=== PATIENT | female | born 1965 | race Caucasian/White ===

== ENCOUNTER 2024-01-31 19:41 | Emergency (ER) | payer OTHER ==
--- NOTE | 2024-01-31 19:55 | ERPHSYRPT ---
- History of Present Illness Time Seen by Provider: 01/31/24 19:54 Source: patient Exam Limitations: no limitations Physician History: This is a 58-year-old white female patient who presents to the emergency department with right hand and forearm numbness and achiness that was relatively sudden onset at approximately 1800 prior to arrival. Patient was brought to the emergency department by the ambulance service. Patient denies any head trauma. She denies headache. She denies visual changes. Patient does have a history of CHF but no history of coronary disease or cardiac stent placement. Patient does have a history of a CVA in the past that is on the right side with left-sided symptoms for period of time. Today, her symptoms are very mild and in the right upper extremity as described above. Patient has a history of a seizure disorder and a psychiatric history of borderline personality disorder and depression. Patient also has a history of hypothyroidism, hypertension, gastroesophageal reflux disease and hyperlipidemia. She has no chest pain. She denies shortness of breath. She denies abdominal pain. She has had no nausea vomiting or diarrhea symptoms. She has noticed no visual changes. Patient is a daily smoker of cigarettes. NIH score on arrival is 0 Timing/Duration: today Severity: mild Associated Symptoms: denies symptoms Allergies/Adverse Reactions: clonidine Allergy (Verified 01/31/24 19:42) MAKES JAW SHUT Influenza Virus Vaccines [Influenza Virus Vaccine] Allergy (Verified 01/31/24 19:42) Home Medications: Aspirin 81 gm Chew [Baby Aspirin 81 mg Chew] 81 mg PO DAILY 01/31/24 [Hist ory] Atomoxetine HCl 40 mg PO DAILY 01/31/24 [History] Atorvastatin Calcium 80 mg PO HS 01/31/24 [History] Buspirone HCl 5 mg [Buspar 5 mg] 10 mg PO TID 01/31/24 [History] Fenofibrate Nanocrystallized [Fenofibrate] 145 mg PO DAILY 01/31/24 [History] Gabapentin [Neurontin ] 300 mg PO HS 01/31/24 [History] Metoprolol Succinate 25 mg Xl* [Toprol-Xl 25MG Tablets] 25 mg PO DAILY 01/31/24 [History] Multivit/Iron Sulf/Folic Acid [Tab-A-Rohith Multivit with Iron] 1 tab PO DAILY 01/31/24 [History] Omeprazole 40 mg PO DAILY 01/31/24 [History] Quetiapine Fumarate [Quetiapine Fumarate ER] 300 mg PO HS 01/31/24 [History] Rivaroxaban [Xarelto] 20 mg PO HS 01/31/24 [History] Sacubitril/Valsartan [Entresto 49 mg-51 mg Tablet] 1 tab PO BID 01/31/24 [History] Sennosides/Docusate Sodium [Stool Softener-Laxative Tablet] 2 tab PO BID 01/31/24 [History] Hx Tetanus, Diphtheria Vaccination/Date Given: Yes (2004) Hx Influenza Vaccination/Date Given: No Hx Pneumococcal Vaccination/Date Given: No Travel Risk - International Travel Have you traveled outside of the country in past 3 weeks: No - Emerging Infectious Disease Are you exhibiting symptoms associated with any current EIDs: No - Vaccine Status Hx Covid Vaccintation/Booster/Date Given: No - Review of Systems Constitutional: No Symptoms Eyes: No Symptoms Ears, Nose, & Throat: No Symptoms Respiratory: No Symptoms Cardiac: No Symptoms Abdominal/Gastrointestinal: No Symptoms Genitourinary Symptoms: No Symptoms Musculoskeletal: Other (Right hand wrist and forearm numbness and mild achiness) Skin: No Symptoms Neurological: No Symptoms, No Dizziness, No Headache, No Speech Changes Psychological: No Symptoms Endocrine: No Symptoms Hematologic/Lymphatic: No Symptoms Immunological/Allergic: No Symptoms All Other Systems: Reviewed and Negative - Past Medical History Pertinent Past Medical History: Yes Neurological History: Seizures ENT History: No Pertinent History Cardiac History: No Pertinent History Respiratory History: No Pertinent History Endocrine Medical History: Hypothyroidism Musculoskeletal History: No Pertinent History GI Medical History: No Pertinent History History: No Pertinent History Psycho-Social History: Depression, Other Female Reproductive Disorders: Fibroids Other Medical History: borderline personality disorder - Past Surgical History Past Surgical History: Yes Neuro Surgical History: No Pertinent History Cardiac: No Pertinent History Gastrointestinal: Appendectomy Genitourinary: No Pertinent History Musculoskeletal: No Pertinent History Female Surgical History: Section, Hysterectomy Other Surgical History: T/A--age 15...diag lap Significant Family History: no pertinent family hx - Social History Smoking Status: Current every day smoker Exposure to second hand smoke: Yes Alcohol Use: None (today or yesterday) Drug Use: none, marijuana (yesterday) Patient Lives Alone: No - Nursing Vital Signs Nursing Vital Signs: Initial Vital Signs Temperature 97 F 01/31/24 19:41 Pulse Rate 91 H 01/31/24 19:41 Respiratory Rate 12 01/31/24 19:41 Blood Pressure 139/80 01/31/24 19:41 O2 Sat by Pulse Oximetry 96 01/31/24 19:41 Pain Scale Pain Intensity 0 - Physical Exam General Appearance: no apparent distress, alert Eye Exam: PERRL/EOMI Ears, Nose, Throat Exam: normal ENT inspection, moist mucous membranes Neck Exam: normal inspection, non-tender, supple, full range of motion Respiratory Exam: normal breath sounds, lungs clear, airway intact, pleural rub, No chest tenderness, No respiratory distress Cardiovascular Exam: regular rate/rhythm, normal heart sounds, normal peripheral pulses Gastrointestinal/Abdomen Exam: soft, normal bowel sounds, No tenderness Pelvic Exam: not done Rectal Exam: not done Back Exam: normal inspection, normal range of motion, No CVA tenderness, No vertebral tenderness Extremity Exam: normal inspection, normal range of motion, pelvis stable Neurologic Exam: alert, oriented x 3, cooperative, chamber magistrate II-XII nml as tested, normal mood/affect, nml cerebellar function, nml station & gait, sensation nml Skin Exam: normal color, warm, dry Lymphatic Exam: No adenopathy SpO2 Interpretation: normal O2 Delivery: Room Air - Course Nursing assessment & vital signs reviewed: Yes Ordered Tests: Active Orders 24 hr Category Date Time Status EKG-ER Only STAT Care 01/31/24 20:31 Active NPO (ED) STAT Care 01/31/24 20:31 Active Pulse Oximetry (ED) STAT Care 01/31/24 20:31 Active HEAD WITHOUT CONTRAST [CT] Stat Exams 01/31/24 19:51 Taken CBC W DIFF Stat Lab 01/31/24 20:46 Completed CMP Stat Lab 01/31/24 20:46 Completed TROPONIN Q4H Lab 01/31/24 21:00 Completed TROPONIN Q4H Lab 02/01/24 01:15 Ordered TROPONIN Q4H Lab 02/01/24 05:15 Ordered TSH [TSH, 3RD Generation] Stat Lab 01/31/24 21:00 Completed UA W/RFX UR CULTURE Stat Lab 01/31/24 20:31 Completed Lab/Rad Data: Laboratory Result Diagrams 01/31/24 20:46 01/31/24 20:46 Laboratory Results 01/31/24 01/31/24 01/31/24 Range/Units 21:00 21:00 21:00 WBC (4.0-10.5) x10^3/uL RBC (4.1-5.4) x10^6/uL Hgb (12.0-16.0) g/dL Hct (35-47) % MCV (78-100) fL MCH (26-32) pg MCHC (32-36) g/dL RDW (11.5-14.0) % Plt Count (150-450) x10^3/uL MPV (7.5-11.0) fL Gran % (36.0-66.0) % Immature Gran % (Auto) (0.00-0.4) % Nucleat RBC Rel Count (0.00-0.1) % Eos # (Auto) (0-0.5) x10^3/uL Immature Gran # (Auto) (0.00-0.03) x10^3u/L Absolute Lymphs (auto) (1.0-4.6) x10^3/uL Absolute Monos (auto) (0.0-1.3) x10^3/uL Absolute Nucleated RBC (0.00-0.01) x10^3u/L Lymphocytes % (24.0-44.0) % Monocytes % (0.0-12.0) % Eosinophils % (0.00-5.0) % Basophils % (0.0-0.4) % Absolute Granulocytes (1.4-6.9) x10^3/uL Basophils # (0-0.4) x10^3/uL Sodium (135-145) mmol/L Potassium (3.5-5.1) mmol/L Chloride (98-107) mmol/L Carbon Dioxide (22-30) mmol/L Anion Gap (5-15) MEQ/L BUN (7-17) mg/dL Creatinine (0.52-1.04) mg/dL Estimated GFR ML/MIN Glucose (74-106) mg/dL Calcium (8.4-10.2) mg/dL Total Bilirubin (0.2-1.3) mg/dL AST (14-36) U/L ALT (0-35) U/L Alkaline Phosphatase (38-126) U/L Troponin I < 0.012 (0.000-0.034) ng/mL Serum Total Protein (6.3-8.2) g/dL Albumin (3.5-5.0) g/dL Free T4 0.77 L (0.78-2.19) ng/dL TSH 3rd Generation 1.650 (0.47-4.68) mIU/L Urine Color (Yellow) Urine Appearance (Clear) Urine pH (4.6-8.0) Ur Specific [place] (1.005-1.030) Urine Protein (Negative) Urine Glucose (UA) (Negative) mg/dL Urine Ketones (Negative) Urine Blood (Negative) Urine Nitrite (Negative) Urine Bilirubin (Negative) Urine Urobilinogen (0.2) mg/dL Ur Leukocyte Esterase (Negative) U Hyaline Cast (Auto) (0-2) /LPF Urine Microscopic RBC (0-5) /HPF Urine Microscopic WBC (0-5) /HPF Ur Epithelial Cells (None Seen) /HPF Urine Bacteria (None Seen) /HPF Urine Culture Reflexed (NO) 01/31/24 01/31/24 01/31/24 Range/Units 20:46 20:46 20:31 WBC 8.0 (4.0-10.5) x10^3/uL RBC 4.58 (4.1-5.4) x10^6/uL Hgb 13.2 (12.0-16.0) g/dL Hct 42.0 (35-47) % MCV 91.7 (78-100) fL MCH 28.8 (26-32) pg MCHC 31.4 L (32-36) g/dL RDW 12.8 (11.5-14.0) % Plt Count 409 (150-450) x10^3/uL MPV 9.7 (7.5-11.0) fL Gran % 53.2 (36.0-66.0) % Immature Gran % (Auto) 1.0 H (0.00-0.4) % Nucleat RBC Rel Count 0.0 (0.00-0.1) % Eos # (Auto) 0.24 (0-0.5) x10^3/uL Immature Gran # (Auto) 0.08 H (0.00-0.03) x10^3u/L Absolute Lymphs (auto) 2.78 (1.0-4.6) x10^3/uL Absolute Monos (auto) 0.58 (0.0-1.3) x10^3/uL Absolute Nucleated RBC 0.00 (0.00-0.01) x10^3u/L Lymphocytes % 34.6 (24.0-44.0) % Monocytes % 7.2 (0.0-12.0) % Eosinophils % 3.0 (0.00-5.0) % Basophils % 1.0 (0.0-0.4) % Absolute Granulocytes 4.28 (1.4-6.9) x10^3/uL Basophils # 0.08 (0-0.4) x10^3/uL Sodium 142 (135-145) mmol/L Potassium 4.4 (3.5-5.1) mmol/L Chloride 108 H (98-107) mmol/L Carbon Dioxide 26 (22-30) mmol/L Anion Gap 12.5 (5-15) MEQ/L BUN 27 H (7-17) mg/dL Creatinine 0.96 (0.52-1.04) mg/dL Estimated GFR 69.4 ML/MIN Glucose 80 (74-106) mg/dL Calcium 9.2 (8.4-10.2) mg/dL Total Bilirubin 0.20 (0.2-1.3) mg/dL AST 29 (14-36) U/L ALT 19 (0-35) U/L Alkaline Phosphatase 44 (38-126) U/L Troponin I (0.000-0.034) ng/mL Serum Total Protein 7.8 (6.3-8.2) g/dL Albumin 4.3 (3.5-5.0) g/dL Free T4 (0.78-2.19) ng/dL TSH 3rd Generation (0.47-4.68) mIU/L Urine Color Yellow (Yellow) Urine Appearance Clear (Clear) Urine pH 6.0 (4.6-8.0) Ur Specific [place] 1.020 (1.005-1.030) Urine Protein Negative (Negative) Urine Glucose (UA) Negative (Negative) mg/dL Urine Ketones Negative (Negative) Urine Blood Negative (Negative) Urine Nitrite Negative (Negative) Urine Bilirubin Negative (Negative) Urine Urobilinogen 1.0 A (0.2) mg/dL Ur Leukocyte Esterase Negative (Negative) U Hyaline Cast (Auto) NONE SEEN (0-2) /LPF Urine Microscopic RBC 0-2 (0-5) /HPF Urine Microscopic WBC 0-2 (0-5) /HPF Ur Epithelial Cells None Seen (None Seen) /HPF Urine Bacteria None Seen (None Seen) /HPF Urine Culture Reflexed NO (NO) - Progress Progress: improved, re-examined Progress Note: 01/31/24 21:13 This patient's medical issue is of moderate complexity. The level of complexity in the workup performed is based on review of the patient's past medical history, review of the patient's medication list, review of patient drug allergy list, history present illness and physical findings on examination. The workup in this patient includes placement of intravenous line, twelve-lead EKG, troponin level, CBC, CMP, urinalysis, CT scan of the head. The CT scan of the head was interpreted by the radiologist. The impression states a new finding of a small old right mid parietal lobe infarction when compared to the same type of study that was performed on 07/17/2011. There are no acute findings 01/31/24 22:33 I interpreted the patient's laboratory data results. There is no evidence of any acute, emergent findings based on the laboratory data results. Patient has no chest pain. Patient is neurologically intact. She has no shortness of breath she has no abdominal pain. She is stable for discharge to home. Counseled pt/family regarding: lab results, diagnosis, need for follow-up, rad results Medical Desision Making - Diagnostic Testing Diagnostic test were ordered, analyzed, and reviewed by me: Yes Radiological Interpretation: Reviewed by me, Teleradiologist Report - Risk of complications Low Risk: Low risk of morbidity from additional dx testing or treatment - Departure Departure Disposition: Home Clinical Impression: Numbness and tingling in right hand Condition: Stable Critical Care Time: No Referrals: DOCTOR,NO FAMILY [NON-STAFF PHY W/O PRIVILEGES] - Follow up/PCP as directed Additional Instructions: Take your medication as prescribed. Call your neurologist on 02/03/2024 to make arranges for follow-up appointment for further evaluation and management.
[2024-01-31 19:57] VITALS: TEMP 97
[2024-01-31 20:48] LABS: Absolute Neutrophil Ct (ANC) 4.28 x10^3/uL (1.4-6.9); Basophil (Absolute #) 0.08 x10^3/uL (0-0.4); Eosinophil (Absolute #) 0.24 x10^3/uL (0-0.5); Hemoglobin 13.2 g/dL (12.0-16.0); IMMATURE GRAN # 0.08 x10^3u/L (0.00-0.03); Lymphocyte (Absolute #) 2.78 x10^3/uL (1.0-4.6); Lymphocytes % 34.6 % (24.0-44.0); Mean Cell Volume 91.7 fL (78-100); Mean Corpuscular Hemoglobin 28.8 pg (26-32); Mean Corpuscular Hgb Concent. 31.4 g/dL (32-36); Mean Platelet Volume 9.7 fL (7.5-11.0); Monocyte (Absolute #) 0.58 x10^3/uL (0.0-1.3); Monocytes % 7.2 % (0.0-12.0); Neutrophil % 53.2 % (36.0-66.0); Platelet Count 409 x10^3/uL (150-450); Red Blood Count 4.58 x10^6/uL (4.1-5.4); Red Cell Distribution Width 12.8 % (11.5-14.0)
[2024-01-31 21:06] LABS: ALBUMIN 4.3 g/dL (3.5-5.0); ANION GAP 12.5 MEQ/L (5-15); BILIRUBIN,TOTAL 0.2 mg/dL (0.2-1.3); Calcium 9.2 mg/dL (8.4-10.2); Creatinine 1 0.96 mg/dL (0.52-1.04); EST GLOMERULAR FILTRATION RATE 69.4 ML/MIN; Potassium 4.4 mmol/L (3.5-5.1); Total Protein 7.8 g/dL (6.3-8.2)
[2024-01-31 21:13] VITALS: PULSE 75
[2024-01-31 22:04] LABS: Appearance Clear (Clear); Bacteria None Seen /HPF (None Seen); Bilirubin Negative (Negative); Blood Negative (Negative); Epithelial Cells None Seen /HPF (None Seen); Glucose, Urine Negative (Negative); Hyaline Casts NONE SEEN /LPF (0-2); Ketones Negative (Negative); Leukocyte Esterase Negative (Negative); Nitrite Negative (Negative); Protein,Urine Dip Negative (Negative); RBC 0-2 /HPF (0-5); WBC 0-2 /HPF (0-5)
[2024-01-31 22:05] LABS: ADD URINE CULTURE? NO (NO)
[2024-01-31 22:43] VITALS: BP 125/91; RESP 20; O2SAT 97
--- NOTE | 2024-02-01 08:25 | XRAY ---
Indication: Tingling. History clot. Multiple contiguous axial images obtained the head without contrast. Comparison: June 15, 2006 New finding small old infarct right mid parietal lobe. No acute intracranial hemorrhage, abnormal extra-axial fluid collection, or mass effect. Fourth ventricle is midline without hydrocephalus. Sheldon-white matter differentiation preserved. Bony calvarium intact. Visualized paranasal sinuses and mastoid air cells are clear. Impression: Small focus old right parietal infarct. No acute intracranial abnormalities.
== END 2024-01-31 22:55 | disposition home or self-care (01) ==
LOC: ED 19:41
DX: R20.2 Paresthesia of skin (principal); I11.0 Hypertensive heart disease with heart failure; I50.9 Heart failure, unspecified; E78.5 Hyperlipidemia, unspecified; Z79.01 Long term (current) use of anticoagulants; Z79.899 Other long term (current) drug therapy; Z28.310 Unvaccinated for COVID-19; Z72.0 Tobacco use
CPT/HCPCS: 36415; 70450; 80053; 81001; 84439; 84443; 84484; 85025; 93005; 94760; 99284

== ENCOUNTER 2024-11-27 21:20 | Observation (INO) | payer OTHER ==
--- NOTE | 2024-11-27 21:40 | ERPHSYRPT ---
- History of Present Illness Time Seen by Provider: 11/27/24 21:23 Historian: patient, EMS Exam Limitations: no limitations Physician History: 59-year-old female with history of hypertension, hyperlipidemia, congestive heart failure not on diuretics, stroke with left-sided residual weakness on Xarelto presented in the ER with left-sided chest pain sudden onset around 7 PM while she was watching TV. Patient took 2 nitros with no significant relief and EMS was called. Patient received another nitro along with full dose aspirin followed by Nitropaste and her pain is better on presentation in the ER. She denies any palpitations or difficulty breathing. No cough fever or chills reported. Denies any history of stenting. Nitro Today/Relief: 0.4 mg x 3, provided by EMS, provided at home Aspirin Treatment Today: 81 mg x 4, provided by EMS Allergies/Adverse Reactions: clonidine Allergy (Verified 01/31/24 19:42) MAKES JAW SHUT Influenza Virus Vaccines [Influenza Virus Vaccine] Allergy (Verified 01/31/24 19:42) Home Medications: Aspirin 81 gm Chew [Baby Aspirin 81 mg Chew] 81 mg PO DAILY 01/31/24 [History] Atorvastatin Calcium 80 mg PO HS 01/31/24 [History] Fenofibrate Nanocrystallized [Fenofibrate] 145 mg PO DAILY 01/31/24 [History] Gabapentin [Neurontin ] 300 mg PO HS 01/31/24 [History] Metoprolol Succinate 25 mg Xl* [Toprol-Xl 25MG Tablets] 25 mg PO DAILY 01/31/24 [History] Multivit/Iron Sulf/Folic Acid [Tab-A-Rohith Multivit with Iron] 1 tab PO DAILY 01/31/24 [History] Omeprazole 40 mg PO DAILY 01/31/24 [History] Quetiapine Fumarate [Quetiapine Fumarate ER] 300 mg PO HS 01/31/24 [History] Rivaroxaban [Xarelto] 20 mg PO HS 01/31/24 [History] Sennosides/Docusate Sodium [Stool Softener-Laxative Tablet] 2 tab PO BID 01/30 [History] Hx Tetanus, Diphtheria Vaccination/Date Given: Yes (2004) Hx Influenza Vaccination/Date Given: No Hx Pneumococcal Vaccination/Date Given: No Travel Risk - Emerging Infectious Disease Are you exhibiting symptoms associated with any current EIDs: No - Review of Systems Constitutional: No Symptoms Eyes: No Symptoms Ears, Nose, & Throat: No Symptoms Respiratory: No Symptoms Cardiac: Chest Pain Abdominal/Gastrointestinal: No Symptoms Genitourinary Symptoms: No Symptoms Musculoskeletal: Deformity Skin: No Symptoms Neurological: Focal Weakness Endocrine: No Symptoms - Past Medical History Pertinent Past Medical History: Yes Neurological History: Seizures ENT History: No Pertinent History Cardiac History: No Pertinent History Respiratory History: No Pertinent History Endocrine Medical History: Hypothyroidism Musculoskeletal History: No Pertinent History GI Medical History: No Pertinent History History: No Pertinent History Psycho-Social History: Depression, Other Female Reproductive Disorders: Fibroids Other Medical History: borderline personality disorder - Past Surgical History Past Surgical History: Yes Neuro Surgical History: No Pertinent History Cardiac: No Pertinent History Gastrointestinal: Appendectomy Genitourinary: No Pertinent History Musculoskeletal: No Pertinent History Female Surgical History: Section, Hysterectomy Other Surgical History: T/A--age 15...diag lap Significant Family History: no pertinent family hx - Social History Smoking Status: Current every day smoker Exposure to second hand smoke: Yes Alcohol Use: None (today or yesterday) Drug Use: none, marijuana (yesterday) Patient Lives Alone: No - Social Determinants of Health Will the patient participate in the screening: Yes Do you worry about a steady place to live?: No In the past 12 months,have you had to go without utilities?: No Transportation Issues: No Has anyone in your support network made you feel unsafe?: No Have you or anyone in your house had to go without enough: No - Nursing Vital Signs Nursing Vital Signs: Initial Vital Signs Temperature 98.6 F 11/27/24 21:20 Pulse Rate 74 11/27/24 21:20 Respiratory Rate 18 11/27/24 21:20 Blood Pressure 128/72 11/27/24 21:20 O2 Sat by Pulse Oximetry 97 11/27/24 21:20 Pain Scale Pain Intensity 0 - Physical Exam General Appearance: no apparent distress Eye Exam: PERRL/EOMI Ears, Nose, Throat Exam: normal ENT inspection Neck Exam: normal inspection, full range of motion Respiratory Exam: normal breath sounds, lungs clear Cardiovascular Exam: regular rate/rhythm, normal heart sounds Gastrointestinal/Abdomen Exam: soft, normal bowel sounds, No tenderness Extremity Exam: other (Left hand contracture) Neurologic Exam: alert, oriented x 3, cooperative Skin Exam: normal color SpO2 Interpretation: normal SpO2: 95 O2 Delivery: Room Air - Course EKG Interpreted by Me: RATE (68), Sinus Rhythm, NORMAL AXIS, NORMAL INTERVALS, Q-wave, Non-specific ST Changes Ordered Tests: Active Orders 24 hr Category Date Time Status Bedrest ROUTINE Activity 11/28/24 01:01 Active Up With Assistance TOLERATED Activity 11/28/24 01:01 Active Call Admit Doctor for Orders ON ADMISSION Care 11/28/24 01:01 Active Retirement Sales Consultant STAT Care 11/27/24 21:32 Completed Code Status Order ROUTINE Care 11/28/24 01:01 Active EKG-ER Only STAT Care 11/27/24 21:32 Completed Fall Protocol Q1H Care 11/28/24 01:01 Active IV Insertion STAT Care 11/27/24 21:[address] in Observation ROUTINE Care 11/28/24 01:01 Active Pulse Oximetry (ED) STAT Care 11/27/24 21:32 Completed Telemetry q6h Care 11/28/24 01:01 Active CHEST 1 VIEW (PORTABLE) Stat Exams 11/27/24 21:32 Taken CBC W DIFF Stat Lab 11/27/24 21:40 Completed CMP Stat Lab 11/27/24 21:40 Completed NT PRO BNPII Stat Lab 11/27/24 21:40 Completed TROPONIN Q4H Lab 11/27/24 21:40 Completed TROPONIN Q4H Lab 11/28/24 01:45 Ordered TROPONIN Q4H Lab 11/28/24 05:45 Ordered Transfer Order Routine Transfer 11/28/24 Completed Medication Summary Generic Name Dose Route Start Last Admin Trade Name Freq PRN Reason Stop Dose Admin Acetaminophen 325 mg 11/28/24 00:54 Acetaminophen 325 Mg Tablet PO 12/28/24 00:53 Q4H PRN PRN PAIN, FEVER, HEADACHE Aspirin 81 mg 11/28/24 10:00 Aspirin 81 Mg Tab.Chew PO 12/28/24 09:59 DAILY SUE Fenofibrate 145 mg 11/28/24 10:00 Fenofibrate,Micronized 145 Mg Tablet PO 12/28/24 09:59 DAILY SUE Gabapentin 300 mg 11/28/24 22:00 Gabapentin 300 Mg Capsule PO 12/28/24 21:59 HS SUE Sodium Chloride 1,000 mls @ 50 mls/hr 11/28/24 01:00 01/18/25 01:02 Sodium Chloride 0.9% 1000 Ml IV 12/28/24 00:59 50 mls/hr .Q20H SUE Administration Metoprolol Succinate 25 mg 11/28/24 10:00 Metoprolol Succinate 25 Mg Xl Tab PO 12/28/24 09:59 DAILY [facility] Non-Formulary Medication 80 mg 11/28/24 22:00 Atorvastatin Calcium [Atorvastatin Calcium] PO 12/28/24 21:59 HS [facility] Non-Formulary Medication 20 mg 11/28/24 22:00 Rivaroxaban [Xarelto] PO 12/28/24 21:59 HS [facility] Ondansetron HCl 4 mg 11/28/24 00:54 Ondansetron Hcl 4 Mg/2 Ml Vial IV 12/28/24 00:53 Q6H PRN PRN NAUSEA/VOMITING Pantoprazole Sodium 40 mg 11/28/24 10:00 Protonix (Pantoprazole) 40 Mg Tablet PO 12/28/24 09:59 DAILY [facility] Quetiapine Fumarate 300 mg 11/28/24 01:46 11/28/24 01:51 Quetiapine Fumarate 100 Mg Tablet PO 12/28/24 01:45 300 mg HS [facility] Administration Discontinued Medications Generic Name Dose Route Start Last Admin Trade Name Freq PRN Reason Stop Dose Admin Acetaminophen Confirm 11/28/24 00:41 Acetaminophen 500 Mg Tablet Administered 11/28/24 00:42 Dose 1,000 mg .ROUTE .STK-MED ONE Acetaminophen 1,000 mg 11/28/24 00:58 11/28/24 00:59 Acetaminophen 500 Mg Tablet PO 11/28/24 00:59 1,000 mg STAT STA Administration Aspirin 324 mg 11/27/24 21:32 11/27/24 21:47 Aspirin 81 Mg Tab.Chew PO 11/27/24 21:33 Not Given STAT ONE Non-Formulary Medication 300 mg 11/28/24 22:00 Quetiapine Fumarate [Quetiapine Fumarate Er] PO 12/28/24 21:59 HS [facility] Lab/Rad Data: Laboratory Result Diagrams 11/27/24 21:40 11/27/24 21:40 Laboratory Results 11/27/24 11/27/24 11/27/24 Range/Units 21:40 21:40 21:40 WBC 6.1 (3.98-10.04) x10^3/uL RBC 4.04 (3.93-5.22) x10^6/uL Hgb 11.5 (11.2-15.7) g/dL Hct 35.6 (34.1-44.9) % MCV 88.1 (79.4-94.8) fL MCH 28.5 (25.6-32.2) pg MCHC 32.3 (32.2-35.5) g/dL RDW 13.2 (11.7-14.4) % Plt Count 346 (182-369) x10^3/uL MPV 10.3 (9.4-12.3) fL Gran % 55.5 (34.0-71.1) % Immature Gran % (Auto) 0.3 (0.001-0.429) % Nucleat RBC Rel Count 0.0 (0.00-0.2) % Eos # (Auto) 0.08 (0.04-0.36) x10^3/uL Immature Gran # (Auto) 0.02 (0.001-0.031) x10^3u/L Absolute Lymphs (auto) 2.08 (1.18-3.74) x10^3/uL Absolute Monos (auto) 0.46 (0.24-0.86) x10^3/uL Absolute Nucleated RBC 0.00 (0.00-0.012) x10^3u/L Lymphocytes % 34.3 (19.3-51.7) % Monocytes % 7.6 (4.7-12.5) % Eosinophils % 1.3 (0.7-5.8) % Basophils % 1.0 (0.1-1.2) % Absolute Granulocytes 3.37 (1.56-6.13) x10^3/uL Basophils # 0.06 (0.01-0.08) x10^3/uL Sodium 139 (135-145) mmol/L Potassium 4.0 (3.5-5.1) mmol/L Chloride 110 H (98-107) mmol/L Carbon Dioxide 19 L (22-30) mmol/L Anion Gap 13.9 (5-15) MEQ/L BUN 21 H (7-17) mg/dL Creatinine 1.20 H (0.52-1.04) mg/dL Estimated GFR 52.8 ML/MIN Glucose 99 (74-106) mg/dL Calcium 9.3 (8.4-10.2) mg/dL Total Bilirubin 0.40 (0.2-1.3) mg/dL AST 32 (14-36) U/L ALT 18 (0-35) U/L Alkaline Phosphatase 40 (38-126) U/L Troponin I < 0.012 (0.000-0.033) ng/mL NT-Pro-B Natriuret Pep 169 (<300) pg/mL Serum Total Protein 7.4 (6.3-8.2) g/dL Albumin 4.3 (3.5-5.0) g/dL - Progress Progress: improved, re-examined Air Movement: good Progress Note: 11/28/24 00:13 59-year-old is evaluated in the ER for chest pain which improved after 3 nitros, full dose aspirin and Nitropaste placed in by EMS. Patient on presentation is chest pain-free. EKG is sinus rhythm with no ST elevation, Chest x-ray negative for any acute cardiopulmonary findings reviewed by me, official report is pending, Normal white count, chemistries with some element of dehydration, patient has negative initial troponins. Does have multiple risk factors for CAD, needs trending of cardiac enzyme and further evaluation., Recommended observation admission which patient agreed. I have discussed with Dr. Allen and patient is being admitted. Blood Culture(s) Obtained: No Antibiotics given: No Discussed with DrBernice: Other (Dr. Allen hospitalist) Will see patient in: hospital (observation) Counseled pt/family regarding: lab results, diagnosis, need for follow-up, rad results Medical Desision Making - Independent Historian Additional History obtained from: Soft Work Wrapper Layer And Examiner/EMT - Discussion of managment Care discussed with:: hospitalist Reviewed:: Test results Agreed on:: Treatment plan, place in obs Will see patient: in hospital - Diagnostic Testing Diagnostic test were ordered, analyzed, and reviewed by me: Yes Radiological Interpretation: Interpreted by me, Reviewed by me - Risk of complications The pt has a mod risk of morbidity or mortality based on: Need for prescription drug management The pt has a high risk of morbidity or mortality based on: Decision regarding hospitilization or escalation of hosp level of care - Departure Departure Disposition: Observation Clinical Impression: Chest pain, rule out acute myocardial infarction Condition: Stable Critical Care Time: No
[2024-11-27] MEDS: BABY ASPIRIN 81 MG CHEW PO ONE (21:47)
[2024-11-27 21:51] LABS: Absolute Neutrophil Ct (ANC) 3.37 x10^3/uL (1.56-6.13); Basophil (Absolute #) 0.06 x10^3/uL (0.01-0.08); Eosinophil % 1.3 % (0.7-5.8); Eosinophil (Absolute #) 0.08 x10^3/uL (0.04-0.36); Hematocrit 35.6 % (34.1-44.9); Hemoglobin 11.5 g/dL (11.2-15.7); IMMATURE GRAN # 0.02 x10^3u/L (0.001-0.031); IMMATURE GRAN % 0.3 % (0.001-0.429); Lymphocyte (Absolute #) 2.08 x10^3/uL (1.18-3.74); Lymphocytes % 34.3 % (19.3-51.7); Mean Cell Volume 88.1 fL (79.4-94.8); Mean Corpuscular Hemoglobin 28.5 pg (25.6-32.2); Mean Corpuscular Hgb Concent. 32.3 g/dL (32.2-35.5); Mean Platelet Volume 10.3 fL (9.4-12.3); Monocyte (Absolute #) 0.46 x10^3/uL (0.24-0.86); Monocytes % 7.6 % (4.7-12.5); Neutrophil % 55.5 % (34.0-71.1); Platelet Count 346 x10^3/uL (182-369); Red Blood Count 4.04 x10^6/uL (3.93-5.22); Red Cell Distribution Width 13.2 % (11.7-14.4); White Blood Count 6.1 x10^3/uL (3.98-10.04)
[2024-11-27 22:21] LABS: ALBUMIN 4.3 g/dL (3.5-5.0); ANION GAP 13.9 MEQ/L (5-15); BILIRUBIN,TOTAL 0.4 mg/dL (0.2-1.3); Calcium 9.3 mg/dL (8.4-10.2); Creatinine 1 1.2 mg/dL (0.52-1.04); EST GLOMERULAR FILTRATION RATE 52.8 ML/MIN; Total Protein 7.4 g/dL (6.3-8.2)
--- NOTE | 2024-11-28 00:24 | PCM.HP ---
History of Present Illness - Chief Complaint Chief Complaint: chest pain Date: 11/27/24 History of Present Illness: Ms. AVELAR is a 59 year old female with a past medical history significant for hypertension, seizures, hyperlipidemia and previous CVA with residual L sided weakness presented to the ER with complaints of substernal chest pain. She was treated with NTP with some improvement of her symptoms. Initial EKG appears to show NSR without any ST changes. Initial troponin and BNP came back within normal limits. She has been recommended for admission to further evaluate her chest pain. No fever/chills. No shortness of breath or palpitations. No nausea, vomiting or diarrhea. No dysuria, hematuria or urgency. - Review of Systems Constitutional: No Fever, No Chills Eyes: No Vision Changes Ears, Nose, & Throat: No Sinus Drainage Respiratory: No Orthopnea, No Short Of Breath Cardiac: Chest Pain, No Edema, No Palpitations Abdominal/Gastrointestinal: No Abdominal Pain, No Nausea, No Vomiting, No Diarrhea Genitourinary Symptoms: No Dysuria, No Frequency, No Hematuria Musculoskeletal: No Joint Swelling, No Myalgias Skin: No Rash Neurological: Headache, No Focal Weakness Psychological: No Suicidal Ideations Endocrine: No Polyuria, No Polydipsia Medications & Allergies Home Medications: Home Medication List Aspirin 81 gm Chew [Baby Aspirin 81 mg Chew] 81 mg PO DAILY 01/31/24 [History Confirmed 11/27/24] Atorvastatin Calcium 80 mg PO HS 01/31/24 [History Confirmed 11/27/24] Fenofibrate Nanocrystallized [Fenofibrate] 145 mg PO DAILY 01/31/24 [History Confirmed 11/27/24] Gabapentin [Neurontin ] 300 mg PO HS 01/31/24 [History Confirmed 11/27/24] Metoprolol Succinate 25 mg Xl* [Toprol-Xl 25MG Tablets] 25 mg PO DAILY 01/31/24 [History Confirmed 11/27/24] Multivit/Iron Sulf/Folic Acid [Tab-A-Rohith Multivit with Iron] 1 tab PO DAILY 01/31/24 [History Confirmed 11/27/24] Omeprazole 40 mg PO DAILY 01/31/24 [History Confirmed 11/27/24] Quetiapine Fumarate [Quetiapine Fumarate ER] 300 mg PO HS 01/31/24 [History Confirmed 11/27/24] Rivaroxaban [Xarelto] 20 mg PO HS 01/31/24 [History Confirmed 11/27/24] Sennosides/Docusate Sodium [Stool Softener-Laxative Tablet] 2 tab PO BID 01/31/24 [History Confirmed 11/27/24] Allergies/Adverse Reactions: Allergies Allergy/AdvReac Type Severity Reaction Status Date / Time clonidine Allergy Verified 01/31/24 19:42 Influenza Virus Vaccines Allergy Verified 01/31/24 19:42 [Influenza Virus Vaccine] - Past Medical History Past Medical History: Yes Neurological History: Seizures ENT History: No Pertinent History Cardiac History: No Pertinent History Respiratory History: No Pertinent History Endocrine Medical History: Hypothyroidism Musculoskelatal History: No Pertinent History GI Medical History: No Pertinent History History: No Pertinent History Pyscho-Social History: Depression, Other Reproductive Disorders: Fibroids Comment: borderline personality disorder - Past Surgical History Past Surgical History: Yes Neuro Surgical History: No Pertinent History Cardiac History: No Pertinent History GI Surgical History: Appendectomy Genitourinary Surgical Hx: No Pertinent History Musculskeletal Surgical Hx: No Pertinent History Female Surgical History: Section, Hysterectomy Other Surgical History: T/A--age 15...diag lap Significant Family History: no pertinent family hx - Social History Smoking Status: Current every day smoker Exposure to second hand smoke: Yes Alcohol: Occasionally Drug Use: none, marijuana (yesterday) - Social Determinants of Health Will the patient participate in the screening: Yes Do you worry about a steady place to live?: No In the past 12 months,have you had to go without utilities?: No Have you or anyone in your house had to go without enough: No Transportation Issues: No Has anyone in your support network made you feel unsafe?: No - Physical Exam Vital Signs: Vital Signs - 24 hr Temp Pulse Resp BP BP Pulse Ox 11/27/24 23:00 59 L 17 130/84 98 11/27/24 22:31 66 22 121/81 96 11/27/24 22:01 59 L 18 107/78 97 11/27/24 21:40 95 11/27/24 21:32 97 11/27/24 21:31 67 23 121/85 96 11/27/24 21:20 98.6 F 74 18 128/72 97 General Appearance: no apparent distress Neurologic Exam: cooperative, No slurred speech Ears, Nose, Throat Exam: moist mucous membranes Neck Exam: supple Respiratory Exam: No respiratory distress Cardiovascular Exam: regular rate/rhythm Gastrointestinal/Abdomen Exam: soft Back Exam: No CVA tenderness Extremity Exam: No pedal edema, No swelling Skin Exam: normal color, No rash Results - Labs Lab/Micro Results: Lab Results-Last 24 Hours 11/27/24 11/27/24 11/27/24 Range/Units 21:40 21:40 21:40 WBC 6.1 (3.98-10.04) x10^3/uL RBC 4.04 (3.93-5.22) x10^6/uL Hgb 11.5 (11.2-15.7) g/dL Hct 35.6 (34.1-44.9) % MCV 88.1 (79.4-94.8) fL MCH 28.5 (25.6-32.2) pg MCHC 32.3 (32.2-35.5) g/dL RDW 13.2 (11.7-14.4) % Plt Count 346 (182-369) x10^3/uL MPV 10.3 (9.4-12.3) fL Gran % 55.5 (34.0-71.1) % Immature Gran % (Auto) 0.3 (0.001-0.429) % Nucleat RBC Rel Count 0.0 (0.00-0.2) % Eos # (Auto) 0.08 (0.04-0.36) x10^3/uL Immature Gran # (Auto) 0.02 (0.001-0.031) x10^3u/L Absolute Lymphs (auto) 2.08 (1.18-3.74) x10^3/uL Absolute Monos (auto) 0.46 (0.24-0.86) x10^3/uL Absolute Nucleated RBC 0.00 (0.00-0.012) x10^3u/L Lymphocytes % 34.3 (19.3-51.7) % Monocytes % 7.6 (4.7-12.5) % Eosinophils % 1.3 (0.7-5.8) % Basophils % 1.0 (0.1-1.2) % Absolute Granulocytes 3.37 (1.56-6.13) x10^3/uL Basophils # 0.06 (0.01-0.08) x10^3/uL Sodium 139 (135-145) mmol/L Potassium 4.0 (3.5-5.1) mmol/L Chloride 110 H (98-107) mmol/L Carbon Dioxide 19 L (22-30) mmol/L Anion Gap 13.9 (5-15) MEQ/L BUN 21 H (7-17) mg/dL Creatinine 1.20 H (0.52-1.04) mg/dL Estimated GFR 52.8 ML/MIN Glucose 99 (74-106) mg/dL Calcium 9.3 (8.4-10.2) mg/dL Total Bilirubin 0.40 (0.2-1.3) mg/dL AST 32 (14-36) U/L ALT 18 (0-35) U/L Alkaline Phosphatase 40 (38-126) U/L Troponin I < 0.012 (0.000-0.033) ng/mL NT-Pro-B Natriuret Pep 169 (<300) pg/mL Serum Total Protein 7.4 (6.3-8.2) g/dL Albumin 4.3 (3.5-5.0) g/dL - Radiology Impressions Radiology Exams & Impressions: Radiology Procedures Category Date Time Status CHEST 1 VIEW (PORTABLE) Stat Exams 11/27/24 21:32 Taken Assessment/Plan (1) Chest pain Current Visit: Yes Status: Acute Assessment & Plan: Chest pain with risk factors for AMI/CAD 1. Admit to hospital 2. Monitor on telemetry 3. Trend cardiac enzymes 4. Continue ASA/beta cindy 5. Consider stress test/echo Code(s): R07.9 - CHEST PAIN, UNSPECIFIED (2) Acute kidney injury Current Visit: Yes Status: Acute Assessment & Plan: Likely from prerenal azotemia 1. Trial of IVFs 2. Check urine lytes, urine creatinine 3. Renal u/s 4. Follow I/Os 5. Watch electrolytes, creatinine closely Code(s): N17.9 - ACUTE KIDNEY FAILURE, UNSPECIFIED (3) Hypertensive chronic kidney disease with stage 1 through stage 4 chronic kidney disease, or unspecified chronic kidney disease Current Visit: Yes Status: Acute Assessment & Plan: Blood pressure under reasonable control 1. Continue bp meds 2. Low Na diet 3. Monitor blood pressure readings Code(s): I12.9 - HYPERTENSIVE CHRONIC KIDNEY DISEASE W STG 1-4/UNSP CHR KDNY (4) Acute metabolic acidosis Current Visit: Yes Status: Acute Assessment & Plan: Likely from ALFRED versus hypoperfusion 1. Trend bicarb 2. Defer sodium bicarb for now Code(s): E87.21 - ACUTE METABOLIC ACIDOSIS Telemedicine Encounter - Telemedicine Encounter Telemedicine Encounter: "The entirety of this encounter was performed via Telemedicine" This visit was performed using real-time audio and video connection between my location and thepatients locationwith the assistance of a surrogateat the patients location. Written or verbal consent was obtained from the patient/guardian to perform this visit using[facility] technology. Any patient questions regarding the telemedicine interaction were answered.
[2024-11-28] MEDS ORDERED: TYLENOL EXTRA STRENGTH 500 MG ONE (00:41)
[2024-11-28] MEDS ORDERED: Zofran 4 MG/2 ML VIAL IV PRN (00:54)
[2024-11-28] MEDS ORDERED: TYLENOL 325 MG PO PRN (00:54)
[2024-11-28] MEDS: TYLENOL EXTRA STRENGTH 500 MG PO STA (00:59)
[2024-11-28] MEDS ORDERED: Sodium Chloride 0.9% 1000 ML 1,000 ML ONE (01:01)
[2024-11-28] MEDS: Sodium Chloride 0.9% 1000 ML 1,000 ML IV SCH (01:02)
[2024-11-28] MEDS: Seroquel 100 MG PO SCH (01:51)
[2024-11-28] MEDS: Sodium Chloride 0.9% 500 ML 500 ML IV ONE (05:13)
[2024-11-28 06:08] LABS: Absolute Neutrophil Ct (ANC) 1.94 x10^3/uL (1.56-6.13); BASOPHIL % 0.8 % (0.1-1.2); Basophil (Absolute #) 0.04 x10^3/uL (0.01-0.08); Eosinophil % 1.4 % (0.7-5.8); Eosinophil (Absolute #) 0.07 x10^3/uL (0.04-0.36); Hematocrit 31.9 % (34.1-44.9); Hemoglobin 10.3 g/dL (11.2-15.7); IMMATURE GRAN # 0.02 x10^3u/L (0.001-0.031); IMMATURE GRAN % 0.4 % (0.001-0.429); Lymphocyte (Absolute #) 2.46 x10^3/uL (1.18-3.74); Lymphocytes % 50.3 % (19.3-51.7); Mean Cell Volume 89.4 fL (79.4-94.8); Mean Corpuscular Hemoglobin 28.9 pg (25.6-32.2); Mean Corpuscular Hgb Concent. 32.3 g/dL (32.2-35.5); Mean Platelet Volume 10.6 fL (9.4-12.3); Monocyte (Absolute #) 0.36 x10^3/uL (0.24-0.86); Monocytes % 7.4 % (4.7-12.5); Neutrophil % 39.7 % (34.0-71.1); Platelet Count 328 x10^3/uL (182-369); Red Blood Count 3.57 x10^6/uL (3.93-5.22); Red Cell Distribution Width 13.3 % (11.7-14.4); White Blood Count 4.9 x10^3/uL (3.98-10.04)
[2024-11-28 06:29] LABS: ALBUMIN 3.6 g/dL (3.5-5.0); ANION GAP 12.5 MEQ/L (5-15); BILIRUBIN,TOTAL 0.3 mg/dL (0.2-1.3); Calcium 8.7 mg/dL (8.4-10.2); Creatinine 1 0.98 mg/dL (0.52-1.04); EST GLOMERULAR FILTRATION RATE 67.3 ML/MIN; Potassium 3.4 mmol/L (3.5-5.1); Total Protein 6.5 g/dL (6.3-8.2)
[2024-11-28] MEDS: Klor Con PO ONE (08:15)
--- NOTE | 2024-11-28 08:22 | XRAY ---
Indication: Chest pain. Comparison: September 19, 2012 Portable chest now demonstrates moderate right hemidiaphragm elevation with adjacent atelectasis. Remaining heart and lungs unremarkable. Bony thorax intact with osteopenia and minimal degenerative changes.
[2024-11-28] MEDS ORDERED: BABY ASPIRIN 81 MG CHEW PO SCH (10:00)
[2024-11-28] MEDS: Tricor 145 MG PO SCH (10:14)
[2024-11-28] MEDS: ECOTRIN 81 MG PO SCH (10:14)
[2024-11-28] MEDS: Protonix 40MG Tablet PO SCH (10:14)
[2024-11-28 10:38] LABS: INFLUENZA A NEGATIVE (NEGATIVE); INFLUENZA B NEGATIVE (NEGATIVE); RESPIRATORY SYNCTIAL VIRUS NEGATIVE (NEGATIVE); SARS-CoV-2 Xpert Express NEGATIVE (NEGATIVE)
--- NOTE | 2024-11-28 10:56 | PCM.NOTE ---
Date and Time: 11/28/24 1050 Subjective Assessment: Ms. AVELAR is a 59 year old female with a past medical history significant for hypertension, seizures, hyperlipidemia and previous CVA with residual L sided weakness. She presented to the ER on 11/27/24 with complaints of substernal chest pain. She was treated with NTP with some improvement of her symptoms. Initial EKG appears to show NSR without any ST changes. Trop x3 and BNP came back within normal limits. No fever/chills. No shortness of breath or palpitations. No nausea, vomiting or diarrhea. No dysuria, hematuria or urgency. Flu/COVID/RSV negative. She explained she has been ill recently with an URI. CXR nonconcerning. Today labs reveal metabolic acidosis and sodium bicarb gtt started. She denies any recent N/V/D. K+ 3.6 and replaced. BP low and metoprolol started and midodrine started. CP resolved today. She denies SOB,abd. pain, N/V/D. - Review of Systems Constitutional: No Fever, No Chills Eyes: No Symptoms Ears, Nose, & Throat: No Symptoms Respiratory: No Cough, No Short Of Breath Cardiac: No Chest Pain, No Edema, No Syncope Abdominal/Gastrointestinal: No Abdominal Pain, No Nausea, No Vomiting, No Diarrhea Genitourinary Symptoms: No Dysuria Musculoskeletal: No Back Pain, No Neck Pain Skin: No Rash Neurological: No Dizziness, No Focal Weakness, No Sensory Changes Psychological: No Symptoms Endocrine: No Symptoms Hematologic/Lymphatic: No Symptoms Immunological/Allergic: No Symptoms Objective Exam General Appearance: no apparent distress, alert Neurologic Exam: alert, oriented x 3, cooperative, normal mood/affect, nml cerebellar function, sensation nml, No motor deficits Skin Exam: normal color, warm, dry Eye Exam: PERRL, EOMI, eyes nml inspection Ears, Nose, Throat Exam: normal ENT inspection, pharynx normal, moist mucous membranes Neck Exam: normal inspection, non-tender, supple, full range of motion Respiratory Exam: normal breath sounds, lungs clear, No respiratory distress Cardiovascular Exam: regular rate/rhythm, normal heart sounds Gastrointestinal/Abdomen Exam: soft, No tenderness, No mass Extremity Exam: normal inspection, normal range of motion Back Exam: normal inspection, normal range of motion, No CVA tenderness, No vertebral tenderness Pelvic Exam: deferred Rectal Exam: deferred Objective Data Vital Signs: Vital Signs - 24 hr Temp Pulse Pulse Resp BP BP Pulse Ox 11/28/24 07:10 97.3 F 62 17 81/39 96 11/28/24 06:14 90/53 11/28/24 04:30 80/54 11/28/24 04:00 97.8 F 78 18 80/52 96 11/28/24 02:16 95 11/28/24 01:00 153/90 11/28/24 00:54 97.8 F 57 L 14 140/81 97 11/28/24 00:30 57 L 15 151/83 97 11/28/24 00:00 57 L 16 144/78 96 11/27/24 23:30 59 L 16 136/81 97 11/27/24 23:00 59 L 17 130/84 98 11/27/24 22:31 66 22 121/81 96 11/27/24 22:01 59 L 18 107/78 97 11/27/24 22:00 77 11/27/24 21:32 97 11/27/24 21:31 67 23 121/85 96 11/27/24 21:20 98.6 F 74 18 128/72 97 Pain Assessment - Last Documented Pain Intensity 8 Pain Scale Used 0-10 Pain Scale Intake and Output: Intake & Output 11/25/24 11/26/24 11/27/24 11/28/24 11:59 11:59 11:59 11:59 Intake Total 613 Balance 613 Weight 74.1 kg Lab Results: Lab Results-Last 24 Hours 11/27/24 11/27/24 11/27/24 Range/Units 21:40 21:40 21:40 WBC 6.1 (3.98-10.04) x10^3/uL RBC 4.04 (3.93-5.22) x10^6/uL Hgb 11.5 (11.2-15.7) g/dL Hct 35.6 (34.1-44.9) % MCV 88.1 (79.4-94.8) fL MCH 28.5 (25.6-32.2) pg MCHC 32.3 (32.2-35.5) g/dL RDW 13.2 (11.7-14.4) % Plt Count 346 (182-369) x10^3/uL MPV 10.3 (9.4-12.3) fL Gran % 55.5 (34.0-71.1) % Immature Gran % (Auto) 0.3 (0.001-0.429) % Nucleat RBC Rel Count 0.0 (0.00-0.2) % Eos # (Auto) 0.08 (0.04-0.36) x10^3/uL Immature Gran # (Auto) 0.02 (0.001-0.031) x10^3u/L Absolute Lymphs (auto) 2.08 (1.18-3.74) x10^3/uL Absolute Monos (auto) 0.46 (0.24-0.86) x10^3/uL Absolute Nucleated RBC 0.00 (0.00-0.012) x10^3u/L Lymphocytes % 34.3 (19.3-51.7) % Monocytes % 7.6 (4.7-12.5) % Eosinophils % 1.3 (0.7-5.8) % Basophils % 1.0 (0.1-1.2) % Absolute Granulocytes 3.37 (1.56-6.13) x10^3/uL Basophils # 0.06 (0.01-0.08) x10^3/uL Sodium 139 (135-145) mmol/L Potassium 4.0 (3.5-5.1) mmol/L Chloride 110 H (98-107) mmol/L Carbon Dioxide 19 L (22-30) mmol/L Anion Gap 13.9 (5-15) MEQ/L BUN 21 H (7-17) mg/dL Creatinine 1.20 H (0.52-1.04) mg/dL Estimated GFR 52.8 ML/MIN Glucose 99 (74-106) mg/dL Calcium 9.3 (8.4-10.2) mg/dL Total Bilirubin 0.40 (0.2-1.3) mg/dL AST 32 (14-36) U/L ALT 18 (0-35) U/L Alkaline Phosphatase 40 (38-126) U/L Troponin I < 0.012 (0.000-0.033) ng/mL NT-Pro-B Natriuret Pep 169 (<300) pg/mL Serum Total Protein 7.4 (6.3-8.2) g/dL Albumin 4.3 (3.5-5.0) g/dL Influenza Type A Ag (NEGATIVE) Influenza Type B Ag (NEGATIVE) RSV (PCR) (NEGATIVE) SARS-CoV-2 (PCR) (NEGATIVE) 11/28/24 11/28/24 11/28/24 Range/Units 02:31 05:20 05:20 WBC 4.9 (3.98-10.04) x10^3/uL RBC 3.57 L (3.93-5.22) x10^6/uL Hgb 10.3 L (11.2-15.7) g/dL Hct 31.9 L (34.1-44.9) % MCV 89.4 (79.4-94.8) fL MCH 28.9 (25.6-32.2) pg MCHC 32.3 (32.2-35.5) g/dL RDW 13.3 (11.7-14.4) % Plt Count 328 (182-369) x10^3/uL MPV 10.6 (9.4-12.3) fL Gran % 39.7 (34.0-71.1) % Immature Gran % (Auto) 0.4 (0.001-0.429) % Nucleat RBC Rel Count 0.0 (0.00-0.2) % Eos # (Auto) 0.07 (0.04-0.36) x10^3/uL Immature Gran # (Auto) 0.02 (0.001-0.031) x10^3u/L Absolute Lymphs (auto) 2.46 (1.18-3.74) x10^3/uL Absolute Monos (auto) 0.36 (0.24-0.86) x10^3/uL Absolute Nucleated RBC 0.00 (0.00-0.012) x10^3u/L Lymphocytes % 50.3 (19.3-51.7) % Monocytes % 7.4 (4.7-12.5) % Eosinophils % 1.4 (0.7-5.8) % Basophils % 0.8 (0.1-1.2) % Absolute Granulocytes 1.94 (1.56-6.13) x10^3/uL Basophils # 0.04 (0.01-0.08) x10^3/uL Sodium (135-145) mmol/L Potassium (3.5-5.1) mmol/L Chloride (98-107) mmol/L Carbon Dioxide (22-30) mmol/L Anion Gap (5-15) MEQ/L BUN (7-17) mg/dL Creatinine (0.52-1.04) mg/dL Estimated GFR ML/MIN Glucose (74-106) mg/dL Calcium (8.4-10.2) mg/dL Total Bilirubin (0.2-1.3) mg/dL AST (14-36) U/L ALT (0-35) U/L Alkaline Phosphatase (38-126) U/L Troponin I 0.018 < 0.012 (0.000-0.033) ng/mL NT-Pro-B Natriuret Pep (<300) pg/mL Serum Total Protein (6.3-8.2) g/dL Albumin (3.5-5.0) g/dL Influenza Type A Ag (NEGATIVE) Influenza Type B Ag (NEGATIVE) RSV (PCR) (NEGATIVE) SARS-CoV-2 (PCR) (NEGATIVE) 11/28/24 11/28/24 Range/Units 05:20 09:45 WBC (3.98-10.04) x10^3/uL RBC (3.93-5.22) x10^6/uL Hgb (11.2-15.7) g/dL Hct (34.1-44.9) % MCV (79.4-94.8) fL MCH (25.6-32.2) pg MCHC (32.2-35.5) g/dL RDW (11.7-14.4) % Plt Count (182-369) x10^3/uL MPV (9.4-12.3) fL Gran % (34.0-71.1) % Immature Gran % (Auto) (0.001-0.429) % Nucleat RBC Rel Count (0.00-0.2) % Eos # (Auto) (0.04-0.36) x10^3/uL Immature Gran # (Auto) (0.001-0.031) x10^3u/L Absolute Lymphs (auto) (1.18-3.74) x10^3/uL Absolute Monos (auto) (0.24-0.86) x10^3/uL Absolute Nucleated RBC (0.00-0.012) x10^3u/L Lymphocytes % (19.3-51.7) % Monocytes % (4.7-12.5) % Eosinophils % (0.7-5.8) % Basophils % (0.1-1.2) % Absolute Granulocytes (1.56-6.13) x10^3/uL Basophils # (0.01-0.08) x10^3/uL Sodium 139 (135-145) mmol/L Potassium 3.4 L (3.5-5.1) mmol/L Chloride 113 H (98-107) mmol/L Carbon Dioxide 16 L* (22-30) mmol/L Anion Gap 12.5 (5-15) MEQ/L BUN 22 H (7-17) mg/dL Creatinine 0.98 (0.52-1.04) mg/dL Estimated GFR 67.3 ML/MIN Glucose 118 H (74-106) mg/dL Calcium 8.7 (8.4-10.2) mg/dL Total Bilirubin 0.30 (0.2-1.3) mg/dL AST 26 (14-36) U/L ALT 16 (0-35) U/L Alkaline Phosphatase 37 L (38-126) U/L Troponin I (0.000-0.033) ng/mL NT-Pro-B Natriuret Pep (<300) pg/mL Serum Total Protein 6.5 (6.3-8.2) g/dL Albumin 3.6 (3.5-5.0) g/dL Influenza Type A Ag NEGATIVE (NEGATIVE) Influenza Type B Ag NEGATIVE (NEGATIVE) RSV (PCR) NEGATIVE (NEGATIVE) SARS-CoV-2 (PCR) NEGATIVE (NEGATIVE) Radiology Exams: Radiology Procedures Category Date Time Status CHEST 1 VIEW (PORTABLE) Stat Exams 11/27/24 21:32 Completed Assessment/Plan (1) Chest pain Current Visit: Yes Status: Resolved Assessment & Plan: - Trop x3 negative - EKG - Tele - CXR: Portable chest now demonstrates moderate right hemidiaphragm elevation with adjacent atelectasis. Remaining heart and lungs unremarkable. Bony thorax intact with osteopenia and minimal degenerative changes. - CP resolved today - procal negative - CBC, CMP reviewed - RA -96% - TSH - FLu/ COVID/RSV negative Code(s): R07.9 - CHEST PAIN, UNSPECIFIED (2) Acute metabolic acidosis Current Visit: Yes Status: Acute Assessment & Plan: - Co2 16- sodium bicarb gtt started Code(s): E87.21 - ACUTE METABOLIC ACIDOSIS (3) Hypokalemia Current Visit: Yes Status: Acute Assessment & Plan: - K+ 3.4- replaced- trend Code(s): E87.6 - HYPOKALEMIA (4) Hypotension Current Visit: Yes Status: Acute Assessment & Plan: - Hold metoprolol - Midodrine started last night - trend BP - IVF Code(s): I95.9 - HYPOTENSION, UNSPECIFIED (5) HTN (hypertension) Current Visit: Yes Status: Chronic Assessment & Plan: - BP medication held d/t hypotension Code(s): I10 - ESSENTIAL (PRIMARY) HYPERTENSION (6) Hyperlipidemia Current Visit: Yes Status: Chronic Assessment & Plan: - Continue statin Code(s): E78.5 - HYPERLIPIDEMIA, UNSPECIFIED (7) History of CVA (cerebrovascular accident) Current Visit: Yes Status: Chronic Assessment & Plan: - Continue Xarelto - With chronic residual left sided weakness. Code(s): Z86.73 - PRSNL HX OF TIA (TIA), AND CEREB INFRC W/O RESID DEFICITS (8) Hypertensive chronic kidney disease with stage 1 through stage 4 chronic kidney disease, or unspecified chronic kidney disease Current Visit: Yes Status: Acute Assessment & Plan: - Hold bp med - Low Na+ diet - Monitor blood pressure readings Code(s): I12.9 - HYPERTENSIVE CHRONIC KIDNEY DISEASE W STG 1-4/UNSP CHR KDNY (9) Acute kidney injury Current Visit: Yes Status: Resolved Assessment & Plan: -resolved Code(s): N17.9 - ACUTE KIDNEY FAILURE, UNSPECIFIED (10) Depression Current Visit: Yes Status: Chronic Assessment & Plan: - Continue seroquel Code(s): F32.A - DEPRESSION, UNSPECIFIED (11) Borderline personality disorder Current Visit: Yes Status: Chronic Assessment & Plan: - noted Code(s): F60.3 - BORDERLINE PERSONALITY DISORDER (12) Seizure disorder Current Visit: Yes Status: Chronic Assessment & Plan: - Not on any current meds for this. VTE: Xarelto PPI: Protonix Next of KIN: Child- Katharina Hernandez [phone] D/C plan: 1-2 days Code status: Full Code(s): G40.909 - EPILEPSY, UNSP, NOT INTRACTABLE, WITHOUT STATUS EPILEPTICUS
[2024-11-28] MEDS: Sodium Bicarbonate 50 MEQ/50 ML VIAL*** 150 MEQ in Dextrose 5%/Water IV Soln. 1000 ML 1... IV SCH (11:43)
[2024-11-28] MEDS: PROAMATINE PO SCH (11:43)
[2024-11-28 12:55] LABS: MAGNESIUM 1.8 mg/dL (1.6-2.3)
[2024-11-28] MEDS: ZOCOR 20MG PO SCH (21:17)
[2024-11-28] MEDS: XARELTO 10 MG TABLET PO SCH (21:17)
[2024-11-28] MEDS: NEURONTIN PO SCH (21:17)
[2024-11-28] MEDS ORDERED: NON-FORMULARY ITEM (Rivaroxaban [Xarelto] 20 MG Tablet) PO SCH (22:00)
[2024-11-28] MEDS ORDERED: QUETIAPINE FUMARATE 300 MG PO SCH (22:00)
[2024-11-28] MEDS ORDERED: NON-FORMULARY ITEM (Atorvastatin Calcium [Atorvastatin Calcium] 80 MG Tablet) PO SCH (22:00)
[2024-11-29 06:28] LABS: Hematocrit 29.8 % (34.1-44.9); Hemoglobin 9.8 g/dL (11.2-15.7); Mean Cell Volume 89.2 fL (79.4-94.8); Mean Corpuscular Hemoglobin 29.3 pg (25.6-32.2); Mean Corpuscular Hgb Concent. 32.9 g/dL (32.2-35.5); Mean Platelet Volume 10.9 fL (9.4-12.3); Platelet Count 304 x10^3/uL (182-369); Red Blood Count 3.34 x10^6/uL (3.93-5.22); Red Cell Distribution Width 13.6 % (11.7-14.4); White Blood Count 4.3 x10^3/uL (3.98-10.04)
[2024-11-29 08:07] LABS: ALBUMIN 3.3 g/dL (3.5-5.0); ANION GAP 10.2 MEQ/L (5-15); BILIRUBIN,TOTAL 0.2 mg/dL (0.2-1.3); Calcium 8.5 mg/dL (8.4-10.2); Creatinine 1 1.01 mg/dL (0.52-1.04); EST GLOMERULAR FILTRATION RATE 64.9 ML/MIN; Potassium 3.8 mmol/L (3.5-5.1); Total Protein 5.8 g/dL (6.3-8.2)
--- NOTE | 2024-11-29 08:42 | PCM.DS ---
Discharge Summary Date of Admission: 11/28/24 00:51 Date of Discharge: 11/29/24 Admitting Physician: GUANAKO JEFFERSON MD Primary Care Provider: COURTNEY BELTRE MD Allergies Allergies clonidine Allergy (Verified 01/31/24 19:42) MAKES JAW SHUT Influenza Virus Vaccines [Influenza Virus Vaccine] Allergy (Verified 01/31/24 19 :42) Hospital Summary - Hospital Course Hospital Course: 11/28/24 Ms. AVELAR is a 59 year old female with a past medical history significant for hypertension, seizures, hyperlipidemia and previous CVA with residual L sided weakness. She presented to the ER on 11/27/24 with complaints of substernal chest pain. She was treated with NTP with some improvement of her symptoms. Initial EKG appears to show NSR without any ST changes. Trop x3 and BNP came back within normal limits. No fever/chills. No shortness of breath or palpitations. No nausea, vomiting or diarrhea. No dysuria, hematuria or urgency. Flu/COVID/RSV negative. She explained she has been ill recently with an URI. CXR nonconcerning. Today labs reveal metabolic acidosis and sodium bicarb gtt started. She denies any recent N/V/D. K+ 3.6 and replaced. BP low and metoprolol started and midodrine started. CP resolved today. She denies SOB,abd. pain, N/V/D. 11/29/24 Pt up and eating breakfast. She is wanting to go home today. Metabolic acidosis resolved. ALFRED resolved.She denies any further CP. She reports feeling much better. She denies any further concerns at this time. BP stable, stop midodrine, resume metoprolol. F/U with cardiology OP. - Vitals & Intake/Output Vital Signs: Vital Signs Temperature 97.9 F 11/29/24 07:00 Pulse Rate 67 11/29/24 07:00 Respiratory Rate 21 11/29/24 07:00 Blood Pressure 130/75 11/29/24 07:00 O2 Sat by Pulse Oximetry 95 11/29/24 07:00 Intake & Output: Intake & Output 11/26/24 11/27/24 11/28/24 11/29/24 11:59 11:59 11:59 11:59 Intake Total 613 3535 Balance 613 3535 Weight 74.1 kg - Lab Result Diagrams: 11/29/24 06:27 11/29/24 06:27 Lab Results-Last 24 Hrs: Lab Results-Last 24 Hours 11/28/24 11/28/24 11/28/24 Range/Units 05:20 09:45 12:35 WBC (3.98-10.04) x10^3/uL RBC (3.93-5.22) x10^6/uL Hgb (11.2-15.7) g/dL Hct (34.1-44.9) % MCV (79.4-94.8) fL MCH (25.6-32.2) pg MCHC (32.2-35.5) g/dL RDW (11.7-14.4) % Plt Count (182-369) x10^3/uL MPV (9.4-12.3) fL Sodium (135-145) mmol/L Potassium 4.0 (3.5-5.1) mmol/L Chloride (98-107) mmol/L Carbon Dioxide (22-30) mmol/L Anion Gap (5-15) MEQ/L BUN (7-17) mg/dL Creatinine (0.52-1.04) mg/dL Estimated GFR ML/MIN Glucose (74-106) mg/dL Calcium (8.4-10.2) mg/dL Magnesium 1.8 (1.6-2.3) mg/dL Total Bilirubin (0.2-1.3) mg/dL AST (14-36) U/L ALT (0-35) U/L Alkaline Phosphatase (38-126) U/L Serum Total Protein (6.3-8.2) g/dL Albumin (3.5-5.0) g/dL Procalcitonin < 0.030 L (0.030-0.080) ng/mL TSH 3rd Generation (0.470-4.680) mIU/L Influenza Type A Ag NEGATIVE (NEGATIVE) Influenza Type B Ag NEGATIVE (NEGATIVE) RSV (PCR) NEGATIVE (NEGATIVE) SARS-CoV-2 (PCR) NEGATIVE (NEGATIVE) 11/29/24 11/29/24 11/29/24 Range/Units 06:27 06:27 06:27 WBC 4.3 (3.98-10.04) x10^3/uL RBC 3.34 L (3.93-5.22) x10^6/uL Hgb 9.8 L (11.2-15.7) g/dL Hct 29.8 L (34.1-44.9) % MCV 89.2 (79.4-94.8) fL MCH 29.3 (25.6-32.2) pg MCHC 32.9 (32.2-35.5) g/dL RDW 13.6 (11.7-14.4) % Plt Count 304 (182-369) x10^3/uL MPV 10.9 (9.4-12.3) fL Sodium 139 (135-145) mmol/L Potassium 3.8 (3.5-5.1) mmol/L Chloride 109 H (98-107) mmol/L Carbon Dioxide 23 (22-30) mmol/L Anion Gap 10.2 (5-15) MEQ/L BUN 19 H (7-17) mg/dL Creatinine 1.01 (0.52-1.04) mg/dL Estimated GFR 64.9 ML/MIN Glucose 101 (74-106) mg/dL Calcium 8.5 (8.4-10.2) mg/dL Magnesium (1.6-2.3) mg/dL Total Bilirubin 0.20 (0.2-1.3) mg/dL AST 23 (14-36) U/L ALT 15 (0-35) U/L Alkaline Phosphatase 35 L (38-126) U/L Serum Total Protein 5.8 L (6.3-8.2) g/dL Albumin 3.3 L (3.5-5.0) g/dL Procalcitonin (0.030-0.080) ng/mL TSH 3rd Generation 1.223 (0.470-4.680) mIU/L Influenza Type A Ag (NEGATIVE) Influenza Type B Ag (NEGATIVE) RSV (PCR) (NEGATIVE) SARS-CoV-2 (PCR) (NEGATIVE) - Radiology Exams Ordered Rad Exams-Entire Visit: Radiology Procedures Category Date Time Status CHEST 1 VIEW (PORTABLE) Stat Exams 11/27/24 21:32 Completed - Procedures and Test Procedures and Tests throughout Hospitalization: Therapy Orders & Screens 11/28/24 00:54 EKG REPEAT IN AM Comment: Diagnosis: chest pain Discharge Exam General Appearance: no apparent distress, alert Neurologic Exam: alert, oriented x 3, cooperative, normal mood/affect, nml cerebellar function, sensation nml, No motor deficits Eye Exam: PERRL, EOMI, eyes nml inspection Ears, Nose, Throat Exam: normal ENT inspection, pharynx normal, moist mucous membranes Neck Exam: normal inspection, non-tender, supple, full range of motion Respiratory Exam: normal breath sounds, lungs clear, No respiratory distress Cardiovascular Exam: regular rate/rhythm, normal heart sounds Gastrointestinal/Abdomen Exam: soft, No tenderness, No mass Pelvic Exam: deferred Rectal Exam: deferred Back Exam: normal inspection, normal range of motion, No CVA tenderness, No vertebral tenderness Extremity Exam: normal inspection, normal range of motion Skin Exam: normal color, warm, dry Final Diagnosis/Problem List - Final Discharge Diagnosis/Problem (1) Chest pain Current Visit: Yes Status: Resolved Code(s): R07.9 - CHEST PAIN, UNSPECIFIED (2) Acute metabolic acidosis Current Visit: Yes Status: Acute Code(s): E87.21 - ACUTE METABOLIC ACIDOSIS (3) Hypokalemia Current Visit: Yes Status: Acute Code(s): E87.6 - HYPOKALEMIA (4) Hypotension Current Visit: Yes Status: Acute Code(s): I95.9 - HYPOTENSION, UNSPECIFIED (5) HTN (hypertension) Current Visit: Yes Status: Chronic Code(s): I10 - ESSENTIAL (PRIMARY) HYPERTENSION (6) Hyperlipidemia Current Visit: Yes Status: Chronic Code(s): E78.5 - HYPERLIPIDEMIA, UNSPECIFIED (7) History of CVA (cerebrovascular accident) Current Visit: Yes Status: Chronic Code(s): Z86.73 - PRSNL HX OF TIA (TIA), AND CEREB INFRC W/O RESID DEFICITS (8) Hypertensive chronic kidney disease with stage 1 through stage 4 chronic ki dney disease, or unspecified chronic kidney disease Current Visit: Yes Status: Acute Code(s): I12.9 - HYPERTENSIVE CHRONIC KIDNEY DISEASE W STG 1-4/UNSP CHR KDNY (9) Acute kidney injury Current Visit: Yes Status: Resolved Code(s): N17.9 - ACUTE KIDNEY FAILURE, UNSPECIFIED (10) Depression Current Visit: Yes Status: Chronic Code(s): F32.A - DEPRESSION, UNSPECIFIED (11) Borderline personality disorder Current Visit: Yes Status: Chronic Code(s): F60.3 - BORDERLINE PERSONALITY DISORDER (12) Seizure disorder Current Visit: Yes Status: Chronic Assessment & Plan: (1) Chest pain Current Visit: Yes Status: Resolved Assessment & Plan: - Trop x3 negative - EKG - Tele - CXR: Portable chest now demonstrates moderate right hemidiaphragm elevation with adjacent atelectasis. Remaining heart and lungs unremarkable. Bony thorax intact with osteopenia and minimal degenerative changes. - CP resolved today - procal negative - CBC, CMP reviewed - RA -96% - TSH- ok - FLu/ COVID/RSV negative 11/29 - CBC, CMP reviewed Code(s): R07.9 - CHEST PAIN, UNSPECIFIED (2) Acute metabolic acidosis Current Visit: Yes Status: Acute Assessment & Plan: - Co2 16- sodium bicarb gtt started 11/29 - resolved - bicarb gtt stopped Code(s): E87.21 - ACUTE METABOLIC ACIDOSIS (3) Hypokalemia Current Visit: Yes Status: Acute Assessment & Plan: - K+ 3.4- replaced- trend 11/29 - resolved Code(s): E87.6 - HYPOKALEMIA (4) Hypotension Current Visit: Yes Status: Acute Assessment & Plan: - Hold metoprolol - Midodrine started last night - trend BP - IVF 11/29 - resolved - stop midodrine - resume metoprolol Code(s): I95.9 - HYPOTENSION, UNSPECIFIED (5) HTN (hypertension) Current Visit: Yes Status: Chronic Assessment & Plan: - BP medication held d/t hypotension 11/29 - resume BP med Code(s): I10 - ESSENTIAL (PRIMARY) HYPERTENSION (6) Hyperlipidemia Current Visit: Yes Status: Chronic Assessment & Plan: - Continue statin Code(s): E78.5 - HYPERLIPIDEMIA, UNSPECIFIED (7) History of CVA (cerebrovascular accident) Current Visit: Yes Status: Chronic Assessment & Plan: - Continue Xarelto - With chronic residual left sided weakness. Code(s): Z86.73 - PRSNL HX OF TIA (TIA), AND CEREB INFRC W/O RESID DEFICITS (8) Hypertensive chronic kidney disease with stage 1 through stage 4 chronic kidney disease, or unspecified chronic kidney disease Current Visit: Yes Status: Acute Assessment & Plan: - Hold bp med - Low Na+ diet - Monitor blood pressure readings Code(s): I12.9 - HYPERTENSIVE CHRONIC KIDNEY DISEASE W STG 1-4/UNSP CHR KDNY (9) Acute kidney injury Current Visit: Yes Status: Resolved Assessment & Plan: -resolved Code(s): N17.9 - ACUTE KIDNEY FAILURE, UNSPECIFIED (10) Depression Current Visit: Yes Status: Chronic Assessment & Plan: - Continue seroquel Code(s): F32.A - DEPRESSION, UNSPECIFIED (11) Borderline personality disorder Current Visit: Yes Status: Chronic Assessment & Plan: - noted Code(s): F60.3 - BORDERLINE PERSONALITY DISORDER (12) Seizure disorder Current Visit: Yes Status: Chronic Assessment & Plan: - Not on any current meds for this. Code(s): G40.909 - EPILEPSY, UNSP, NOT INTRACTABLE, WITHOUT STATUS EPILEPTICUS - Discharge Discharge Date: 11/29/24 Disposition: Home, Self-Care Condition: Stable Prescriptions: Continue Multivit/Iron Sulf/Folic Acid [Tab-A-Rohith Multivit with Iron] 1 tab PO DAILY Sennosides/Docusate Sodium [Stool Softener-Laxative Tablet] 2 tab PO BID Quetiapine Fumarate [Quetiapine Fumarate ER] 300 mg PO HS Omeprazole 40 mg PO DAILY Metoprolol Succinate 25 mg Xl* [Toprol-Xl 25MG Tablets] 25 mg PO DAILY Gabapentin [Neurontin ] 300 mg PO HS Fenofibrate Nanocrystallized [Fenofibrate] 145 mg PO DAILY Atorvastatin Calcium 80 mg PO HS Aspirin 81 gm Chew [Baby Aspirin 81 mg Chew] 81 mg PO DAILY Rivaroxaban [Xarelto] 20 mg PO HS Instructions: Chest pain Follow up with: COURTNEY BELTRE MD [Primary Care Provider] -
[2024-11-29] MEDS: Toprol-Xl 25MG Tablets PO SCH (09:42)
[2024-11-29 11:43] VITALS: BP 116/62; PULSE 70; RESP 18; TEMP 97.7; O2SAT 93
== END 2024-11-29 13:25 | disposition home or self-care (01) ==
LOC: ED 21:20 → MED SURG 11-28 00:51
PROVIDERS: ADMIT Internal Medicine Nephrology; ATTEND Internal Medicine Nephrology
DX: R07.9 Chest pain, unspecified (principal); E78.5 Hyperlipidemia, unspecified; I69.354 Hemiplegia and hemiparesis following cerebral infarction affecting left non-dominant side; E87.21 Acute metabolic acidosis; I95.9 Hypotension, unspecified; I12.9 Hypertensive chronic kidney disease with stage 1 through stage 4 chronic kidney disease, or unspecified chronic kidney disease; N18.9 Chronic kidney disease, unspecified; N17.9 Acute kidney failure, unspecified; F32.A Depression, unspecified; F60.3 Borderline personality disorder; F17.200 Nicotine dependence, unspecified, uncomplicated; G40.909 Epilepsy, unspecified, not intractable, without status epilepticus; Z79.899 Other long term (current) drug therapy; Z79.01 Long term (current) use of anticoagulants
CPT/HCPCS: 0241U; 36415; 71045; 80053; 83735; 83880; 84132; 84145; 84443; 84484; 85025; 85027; 93005; 93041; 94760; 99285; Q3014; 93268; A9270-GY; G0378